=== PATIENT | male | born 1940 | race Native Hawaiian/Other Pacific Islander ===

== ENCOUNTER 2021-06-01 13:51 | Outpatient (CLI) | payer OTHER | END 2021-06-01 19:46 | disposition home or self-care (01) | LOC: RAD 13:51 | PROVIDERS: ATTEND Physician Assistant | DX: M19.011 Primary osteoarthritis, right shoulder (principal) ==

== ENCOUNTER 2021-08-25 16:03 | Emergency (ER) | payer OTHER ==
[~2021-08-25] VITALS: Ht 177.8 cm; Wt 74.8 kg
[2021-08-25 16:27] LABS: PLATELET COUNT 224 K/uL (142-355)
[2021-08-25 16:37] LABS: POTASSIUM 4.3 mmol/L (3.6-5.2)
[2021-08-25 16:47] LABS: PARTIAL THROMBOPLASTIN TIME 27.4 SECONDS (24.5-33.6)
[2021-08-25 17:05] VITALS: BP 136/77; TEMP 97.6
== END 2021-08-25 17:05 | disposition home or self-care (01) ==
LOC: ED 16:03
PROVIDERS: Emergency Medicine
DX: R55 Syncope and collapse (principal); I48.91 Unspecified atrial fibrillation; Z98.890 Other specified postprocedural states
CPT/HCPCS: 80053; 82550; 83880; 84484; 85027; 85610; 85730; 93005; 99284

== ENCOUNTER 2021-11-04 15:39 | Observation (INO) | payer OTHER ==
[~2021-11-04] VITALS: Ht 175.3 cm; Wt 69.5 kg
[2021-11-04] VITALS (10 sets, daily range): BP systolic 83–115; BP diastolic 63–91; TEMP 97.8–98.5; Ht 175.3 cm; Wt 69.5 kg
[2021-11-04 15:55] LABS: PLATELET COUNT 124 K/uL (142-355)
[2021-11-04 16:03] LABS: POTASSIUM 3.9 mmol/L (3.6-5.2)
[2021-11-04 16:15] LABS: PARTIAL THROMBOPLASTIN TIME 26.7 SECONDS (24.5-33.6)
[2021-11-04] MEDS ORDERED: BUDESONIDE0.5 MG/2 M INH (20:24)
[2021-11-04] MEDS ORDERED: POT CHLORIDE10 MEQ PO (20:25)
[2021-11-04] MEDS ORDERED: ELIQUIS5 MG PO (20:27)
[2021-11-04] MEDS ORDERED: METOPROLOL25 M1 PO (20:30)
[2021-11-04] MEDS ORDERED: EUTHYROX100 MCG PO (20:32)
[2021-11-04] MEDS ORDERED: LIPITOR20 MG PO (20:33)
[2021-11-04] MEDS ORDERED: PSYL0.52C PO (20:36)
[2021-11-04] MEDS ORDERED: OMEP20CA PO (20:38)
[2021-11-04] MEDS ORDERED: DIPH25CA90 PO (20:44)
[2021-11-04] MEDS ORDERED: PRED20TA27 PO (20:47)
[2021-11-04] MEDS ORDERED: PREDNISONE10 MG PO (20:48)
[2021-11-05] VITALS: BP 100/60; TEMP 97.7
[2021-11-05 04:00] VITALS: BP 100/60; TEMP 97.8
== END 2021-11-05 04:30 | disposition short-term general hospital (02) ==
LOC: ED 15:39 → MED/SURG 16:30
PROVIDERS: Hospitalist; ADMIT Internal Medicine; ATTEND Internal Medicine
DX: I48.91 Unspecified atrial fibrillation (principal); R07.89 Other chest pain; R06.02 Shortness of breath; I10 Essential (primary) hypertension
CPT/HCPCS: 80053; 80320; 82550; 83735; 83880; 84484; 85027; 85610; 85730; 87635; 93005; 94760; 96360; 96374; 96375; 96376; 99220; 99284; G0378; J3490; U0003

== ENCOUNTER 2021-11-15 09:50 | Emergency (ER) | payer OTHER ==
[~2021-11-15] VITALS: Ht 175.3 cm; Wt 69.4 kg
[2021-11-15 09:50] VITALS: TEMP 98.6
[~2021-11-15 09:50] MED LIST: BUDESONIDE0.5 MG/2 M INH; DIPH25CA90 PO; ELIQUIS5 MG PO; EUTHYROX100 MCG PO; LIPITOR20 MG PO; METOPROLOL25 M1 PO; OMEP20CA PO; POT CHLORIDE10 MEQ PO; PRED20TA27 PO; PREDNISONE10 MG PO; PSYL0.52C PO
[2021-11-15 10:03] LABS: PLATELET COUNT 161 K/uL (142-355)
[2021-11-15 10:18] LABS: POTASSIUM 3.7 mmol/L (3.6-5.2)
[2021-11-15 10:27] LABS: PARTIAL THROMBOPLASTIN TIME 22.3 SECONDS (24.5-33.6)
[2021-11-15 15:30] VITALS: BP 126/84
== END 2021-11-15 15:30 | disposition short-term general hospital (02) ==
LOC: ED 09:50
PROVIDERS: Emergency Medicine
DX: I21.4 Non-ST elevation (NSTEMI) myocardial infarction (principal); J84.112 Idiopathic pulmonary fibrosis; I10 Essential (primary) hypertension; Z11.52 Encounter for screening for COVID-19; Z99.81 Dependence on supplemental oxygen
CPT/HCPCS: 36415; 80053; 83880; 84484; 85027; 85379; 85610; 85730; 87040; 87635; 93005; 96365; 96366; 96375; 99284; J0696; J1644; Q9963; U0003